=== PATIENT | male | born 2000 | race Caucasian/White ===

== ENCOUNTER 2022-09-01 22:04 | Emergency (ER) | payer BC, OTHER ==
[2022-09-01 22:11] VITALS: BP 116/75; PULSE 68; RESP 18; TEMP 98; BMI 27.3
[2022-09-01] MEDS ORDERED: KETOROLAC TROMETHAMINE 30 MG/1 ML VIAL IM ONE (22:51)
[2022-09-01] MEDS ORDERED: diazePAM 5 MG TABLET PO ONE (22:51)
[2022-09-01] MEDS ORDERED: diazePAM 5 MG TABLET ONE (23:17)
[2022-09-01] MEDS ORDERED: KETOROLAC TROMETHAMINE 30 MG/1 ML VIAL ONE (23:17)
[2022-09-02] MEDS ORDERED: ACETAMINOPHEN 325 MG TABLET (FP) PO ONE (00:15)
== END 2022-09-02 00:57 | disposition home or self-care (01) ==
LOC: JER 22:04
PROC: 3E0233Z Introduction of Anti-inflammatory into Muscle, Percutaneous Approach (ICD-10-PCS; principal; 2022-09-01)
DX: S62.339A Displaced fracture of neck of unspecified metacarpal bone, initial encounter for closed fracture (principal); W22.8XXA Striking against or struck by other objects, initial encounter
CPT/HCPCS: 73130-TC-LT-FY; 99284-25